=== PATIENT | female | born 1965 | race Caucasian/White ===

== ENCOUNTER → 2021-06-08 16:07 | Outpatient (BNVA) | payer OTHER, SELFPAY | PROVIDERS: PCP Nurse Practitioner Family; Visit Provider Orthopaedic Surgery | DX: Z01.812 Encounter for preprocedural laboratory examination (principal); Z20.822 Contact with and (suspected) exposure to COVID-19 | CPT/HCPCS: 87635 ==

== ENCOUNTER 2021-06-14 06:32 | Day surgery (SDC) | payer OTHER, SELFPAY ==
[2021-06-13 11:47] VITALS: BMI 32.6
[2021-06-14] VITALS (7 sets, daily range): BP systolic 102–121; BP diastolic 77–85; PULSE 70–97; RESP 10–18; TEMP 36.1–36.9; O2SAT 93–97
[2021-06-14] MEDS: sodium chloride 0.9% 1,000 ML 30 ML IV (06:50)
--- NOTE | 2021-06-14 07:19 | ANES.PREANE2 ---
Pre-Anesthetic Assessment Pre-Anesthetic Assessment: Height/Weight: Height 1.73 m Weight 97.522 kg Temp Pulse Resp BP Pulse Ox 98.4 F 93 18 102/77 96 06/14/21 06:54 06/14/21 06:54 06/14/21 06:54 06/14/21 06:54 06/14/21 06:54 Preop Diagnosis: Knee Medial meniscal tear, right Proposed Procedure: Operation Date: 06/14/21 08:05 Proposed Procedures p right Knee Arthroscopy with medial meniscectomy 52287 s83.241A(Right) - Shashi Blair MD Familial anesthetic complications: none Was Beta Robert taken within 24 hours: N/A Was Clonidine taken within 24 hours: N/A Last intake: Intake Last Liquid Date 06/13/21 Last Liquid Time 20:00 Last Solid Date 06/13/21 Last Solid Time 20:00 Social: Social History: No alcohol and No tobacco Exam: Pre-Anes Outpt Exam: alert, oriented x 3, clear to auscultation bilaterally and regular rate & rhythm Airway: Cervical ROM: WNL MP: 1 Dentition: Full Anesthetic Plan: ASA status: 1 Anesthesia: General Risk of > 500 ml blood loss (7ml/kg in children): No PFSH Anesthesia PFSH: Social History Smoking and tobacco status: former smoker Alcohol intake: current Alcohol intake frequency: holidays/special occasions only Data Anesthesia Cardiac Studies: No Data to Display
--- NOTE | 2021-06-14 07:51 | W.PM.OPSUD ---
Surgery/Procedure H&P Update DATE OF PROCEDURE: June 14, 2021 DATE H&P PERFORMED: 05/22/21 PREOP DIAGNOSIS: Knee Medial meniscal tear, right PLANNED PROCEDURE: Operation Date: 06/14/21 08:05 Proposed Procedures p right Knee Arthroscopy with medial meniscectomy 55632 s83.241A(Right) - Shashi Blair MD
[2021-06-14] MEDS: morphine 4 mg/mL SDV 1 mL 8 MG XX (08:38)
--- NOTE | 2021-06-14 09:06 | P.OP_ITS ---
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 She had full-thickness cartilage loss over approximately 1 x 2 cm area of the weightbearing aspect the medial femoral condyle. She had fibrillation fraying and thinning of the lateral tibial plateau Procedure Done: Arthroscopic right lateral meniscectomy, chondroplasty medial femoral condyle Pathology: none sent Anesthesia: General Estimated blood loss (mL): 10 Complications: None Findings: The patient had complex tearing involving the central 50% of the right lateral meniscus. She had generalized fibrillation and thinning of the lateral tibial plateau. She had approximately a 1 x 2 cm full-thickness area of cartilage loss over the weightbearing aspect of the medial femoral condyle Condition: stable Disposition: PACU Procedure: Marianne was taken to the operating room and given a general anesthesia. She was given 2 g of Ancef. She was prepped and draped in the supine position with the right leg exposed. The knee was infiltrated with 30 cc of 0.5% Marcaine with epi and 10 mg of morphine. A timeout was performed. The knee was entered through the standard inferior medial and inferior lateral portal. The diagnostic portion of the arthroscopy was performed. Initial attention was paid to the lateral compartment. Utilizing an incisor shaver unstable flaps and fissures from the central portion lateral meniscus were removed. The rim was then cleaned out with the [employer] Werewolf probe leaving approximately 50% of the lateral meniscus in the middle third behind. Thinning and fibrillation were identified over the lateral tibial plateau. There were no unstable flaps to benefit from debridement and this was not addressed. Next attention was focused over the medial femoral condyle. The area of full- thickness cartilage loss was identified. Utilizing the werewolf probe unstable peripheral flaps and fissures were debrided back to a stable rim. This left an approximately 1 x 2 cm area of full-thickness cartilage loss over the central weightbearing medial femoral condyle. The remaining cartilage looked reasonable. Margins were stable. Final attention was focused on the patellofemoral joint which revealed remarkably little chondromalacia. The knee was irrigated with saline. Portals were closed with 3-0 Prolene. Sterile dressings were applied. The patient was extubated and taken to the recovery room in stable condition.
[2021-06-14] MEDS: HYDROcodone-acetaminophen 5-325 mg Tablet 1 TAB PO (10:15)
--- NOTE | 2021-06-14 16:52 | ANE.PACU2 ---
Inpatient post-anesthesia follow up: Airway intact: Yes Vital signs: Temperature 97.7 F Pulse Rate 71 Respiratory Rate 18 Blood Pressure 110/79 Pulse Oximetry 93 Oxygen Delivery Me thod Room Air Oxygen Flow Rate 8 Fraction of Inspir ed Oxygen Hydration adequate: Yes Nausea and vomiting: No Pain level: 2 Mental status: Baseline
== END 2021-06-14 10:20 | disposition home or self-care (01) ==
PROVIDERS: PCP Nurse Practitioner Family; Visit Provider Orthopaedic Surgery
PROC: (CPT 29870; principal; 2021-06-14 07:55)
DX: S83.281A Other tear of lateral meniscus, current injury, right knee, initial encounter (principal); W22.8XXA Striking against or struck by other objects, initial encounter; Y99.0 Civilian activity done for income or pay; Z87.891 Personal history of nicotine dependence
CPT/HCPCS: 29881; J0690; J1100; J2270; J2405; J2704; J3010; J3490; J7030

== ENCOUNTER → 2021-10-10 08:07 | Outpatient (BNVA) | payer BC, SELFPAY | PROVIDERS: PCP Nurse Practitioner Family; Visit Provider Orthopaedic Surgery | DX: M25.562 Pain in left knee (principal); M25.462 Effusion, left knee | CPT/HCPCS: 73560; 73565 ==

== ENCOUNTER 2021-11-15 06:43 | Outpatient (CLI) | payer BC, SELFPAY ==
--- NOTE | 2021-11-15 07:15 | MR_ITS ---
WS: [id number] MRI LEFT KNEE HISTORY: M94.262 - Chondromalacia, left knee COMPARISON: Radiographs 10/10/2021 Anterior cruciate ligament: Mild thickening of the distal ACL but no tear. Posterior cruciate ligament: Intact. Medial collateral ligament: Medial collateral ligament is being displaced from the joint line by an e xtruded meniscus. There is fluid along the osseous aspect of the MCL. No MCL tear. Posterior lateral corner structures: Intact. Medial menisci: Horizontal tear in the posterior horn extends to the inferior articular surface and a lso towards the free edge. There is additional significant increased signal within the central portio n of the posterior meniscus. Meniscus is extruded from the joint line by 5 mm. Anterior horn is pattie l. Lateral meniscus: Intact. Normal signal, size and shape. Extensor mechanism: Distal quadriceps tendon and patellar tendons are intact. Fluid and soft tissue: Moderate amount of suprapatellar bursal fluid. There is also edema surrounding the knee greatest along the medial knee at the level of the tibial plateau. Small amount of fluid ex tending around the medial head of the gastrocnemius and the semimembranosus muscle. No focal collecti on. Osseous and articular structures: Patellofemoral compartment: Cartilage is intact. No marrow edema. Medial compartment: Moderate narrowing medial compartment with moderate chondromalacia. Thinning and fissuring of cartilage. Near bone upon bone. There is a additional marrow edema along the medial tibi al plateau. Lateral compartment: Mild narrowing of the lateral compartment with thinning and fissuring and loss o f cartilage. No marrow edema. MR/MR knee LT wo con* [id number] IMPRESSION: 1. Significant marrow edema in the medial tibial plateau with moderate loss of cartilage and joint space narrowing in the medial compartment. 2. Horizontal tear posterior horn medial meniscus with additional intrasubstan ce degeneration and extrusion from the joint line. 3. Increased fluid around the MCL with the MCL being displaced from the joint line by the extruded meniscus. 4. Suprapatellar joint effusion with additional edema associated with the semi membranosus muscle and the medial head of the gastrocnemius. 5. Chondromalacia lateral compartment joint space narrowing. No underlying mar row edema.
== END 2021-11-15 06:44 | disposition home or self-care (01) ==
LOC: RADSHAW 06:52
PROVIDERS: PCP Nurse Practitioner Family; Visit Provider Orthopaedic Surgery
DX: M94.262 Chondromalacia, left knee (principal); M25.462 Effusion, left knee; R60.0 Localized edema; S83.242A Other tear of medial meniscus, current injury, left knee, initial encounter; X58.XXXA Exposure to other specified factors, initial encounter
CPT/HCPCS: 73721

== ENCOUNTER → 2021-11-30 00:01 | Outpatient (BNVA) | payer BC, SELFPAY | PROVIDERS: PCP Nurse Practitioner Family; Visit Provider Orthopaedic Surgery | DX: Z01.812 Encounter for preprocedural laboratory examination (principal); Z20.822 Contact with and (suspected) exposure to COVID-19 | CPT/HCPCS: 87635 ==

== ENCOUNTER 2021-12-06 07:30 | Day surgery (SDC) | payer BC, SELFPAY ==
[2021-12-05 11:32] VITALS: BMI 31.9
[2021-12-06] VITALS (13 sets, daily range): BP systolic 105–148; BP diastolic 64–92; PULSE 56–70; RESP 16–18; TEMP 36.2–36.5; O2SAT 94–99
[2021-12-06] MEDS: sodium chloride 0.9% 1,000 ML 30 ML IV (08:02)
--- NOTE | 2021-12-06 09:07 | W.PM.OPSUD ---
Surgery/Procedure H&P Update DATE OF PROCEDURE: December 06, 2021 DATE H&P PERFORMED: 11/27/21 PREOP DIAGNOSIS: Knee Medial meniscal tear left PLANNED PROCEDURE: Operation Date: 12/06/21 08:55 Proposed Procedures p Knee Arthroscopy w/ Meiscectomy 43384 M23.307(Left) - Shashi Blair MD
--- NOTE | 2021-12-06 09:19 | ANES.PREANE2 ---
Pre-Anesthetic Assessment Pre-Anesthetic Assessment: Height/Weight: Height 1.73 m Weight 95.254 kg Temp Pulse Resp BP Pulse Ox 97.7 F 67 18 126/71 99 12/06/21 07:51 12/06/21 07:51 12/06/21 07:51 12/06/21 07:51 12/06/21 07:51 Preop Diagnosis: Knee Medial meniscal tear left Proposed Procedure: Operation Date: 12/06/21 08:55 Proposed Procedures p Knee Arthroscopy w/ Meiscectomy 95316 M23.307(Left) - Shashi Blair MD Familial anesthetic complications: None Was Beta Robert taken within 24 hours: N/A Was Clonidine taken within 24 hours: N/A Last intake: Intake Last Liquid Date 12/05/21 Last Liquid Time 19:00 Last Solid Date 12/05/21 Last Solid Time 19:00 Social: Social History: No alcohol Exam: Pre-Anes Outpt Exam: alert, oriented x 3, clear to auscultation bilaterally and regular rate & rhythm Airway: Submandibular: WNL Cervical ROM: WNL MP: 1 Dentition: Full History/ROS: No significant history except as noted and No significant complaints Pulmonary: Pulmonary: None reported CV/HEM: CV/HEM: None reported : : None reported Hepatic: Hepatic: None reported GI: GI: None reported Metabolic: Metabolic: None reported Musc/skel: Comments: Chrondomalacia Neuropsych: Neuropsych: None reported Anesthetic Plan: ASA status: 1 Anesthesia: Anesthesia Evaluation and General Risk of > 500 ml blood loss (7ml/kg in children): No Medications/Allergies Current Medications: Current Medications Generic Name Dose Route Start Last Admin Trade Name Fitzq PRN Reason Stop Dose Admin Sodium Chloride 1,000 mls @ 30 ml s/hr 12/06/21 07:45 12/06/21 08:02 Sodium Chloride 0.9% IV 12/07/21 07:44 30 mls/hr .Q24H LUCIANA Administration PFSH Anesthesia PFSH: Social History Smoking and tobacco status: former smoker Alcohol intake: current Alcohol intake frequency: holidays/special occasions only Data Anesthesia Cardiac Studies: No Data to Display
[2021-12-06] MEDS: morphine 4 mg/mL SDV 1 mL 8 MG XX (09:58)
--- NOTE | 2021-12-06 12:27 | XR_ITS ---
WS: [id number] XR knee LT 1-2V [id number] REASON FOR EXAM: left knee xray for counts FINDINGS: Small radiopaque perforated plate overlying the mid proximal tibial metaphysis. No other radiopacities. No bony abnormality. XR/XR knee LT 1-2V 22113 IMPRESSION: Small radiopacity overlying the proximal as above. This has the appearance of a n anchor for ligament repair however correlation with surgical procedure is nee ded.
--- NOTE | 2021-12-06 13:04 | P.OP_ITS ---
Operative Report Date of procedure: December 06, 2021 Pre-op Diagnosis: Knee Medial meniscal tear left, chondromalacia left knee Post-op diagnosis: other Post-op Diagnosis: Left medial meniscal root avulsion, subacute; chondromalacia medial femoral condyle Post-op Findings: The patient had a root avulsion of the left medial meniscus. She had generalized fraying and cartilage thinning over the medial femoral condyle but no exposed subchondral bone Procedure Done: Arthroscopic repair left medial meniscal root Chondroplasty left medial femoral condyle Implants: [employer]hew Ultratape many x2 and Endobutton Pathology: none sent Surgeon: Shashi Blair Anesthesia: General Estimated blood loss (mL): 10 Tourniquet time (min): 83 Complications: None Findings: The patient had an avulsion of the meniscal root. No meniscal tissue was identified at the attachment. She had generalized fraying and thinning over the medial femoral condyle but no exposed subchondral bone Condition: stable Disposition: PACU Brief History: Marianne had a 2 to 3-month history of swelling and pain in the left knee in the absence of trauma. An MRI revealed extrusion of the medial meniscus although a root tear was not clearly visible and mild chondromalacia of the medial femoral condyle with significant tibial edema. Arthroscopic surgery was the chosen to better evaluate the status of the meniscus and proceed with meniscal root repair if possible. Procedure: Marianne was taken to the operating room and given 2 g of Ancef. She was given a general anesthesia and her knee was infiltrated with 30 cc of 0.5% Marcaine with epi and 10 mg of morphine. A timeout was performed. The knee was initially entered through the anterior medial and anterior lateral portal and the diagnostic portion arthroscopy was performed. Essentially no significant chondromalacia was identified in the patella trochlea or lateral compartment. She had a generalized fibrillation and fraying over the entirety of the medial femoral condyle but no exposed subchondral bone was identified. Utilizing an incisor shaver and [employer] Werewolf probe unstable meniscus was debrided back to a stable base of the tissue. Attention was then focused on the meniscal root. A more anterior medial portal was made. Through that portal the posterior root could be grasped and the quality of the posterior meniscal root assessed. It was found to be marginally mobile. The [employer] Werewolf probe was then used to release some of the inferior capsular tissue beneath the meniscus allowing greater mobility. A left S[employer]hew FirstPass mini suture passer was used to shuttle 2 tapes through the meniscal root. The root repair guide was then placed at the pre sumed attachment. A 2 cm long incision was made over the medial tibia and the guide secured on the tibia. A tunnel was drilled exiting at the attachment site. The shuttle suture was used to shuttle all 4 stitches through the tunnel and secured but it was still difficult to completely mobilized the meniscus to the attachment and it seemed to threaten the integrity of the sutures. The medial suture was then removed and using the first pass mini a tape passed in a luggage tag type of fashion with better purchase. A tunnel was then made in a slightly more medialized position to allow easier mobilization of the meniscus to the tibia. All 4 sutures were passed through the tunnel. They were secured over a Endobutton with images revealing the meniscus positioned beneath the medial condyle correctly and and the root firmly attached to the tunnel. The knee was irrigated with saline. The medial incision was closed with deep 2- 0 Vicryl and superficial 3-0 Prolene. Portals were closed with 3-0 Prolene. Sterile dressings were applied. The patient was placed in a hinged brace locked in full extension.
[2021-12-06] MEDS: fentaNYL 50 mcg/mL INJ 2mL IVP (13:18)
[2021-12-06] MEDS: ondansetron 2 mg/ML SDV 2 mL 4 MG IVP (14:10)
[2021-12-06] MEDS: HYDROmorphone 1 mg/mL INJ 1 mL 0.5 MG IVP (14:21)
--- NOTE | 2021-12-06 14:30 | ANE.PACU2 ---
Inpatient post-anesthesia follow up: Airway intact: Yes Vital signs: Temperature 97.4 F Pulse Rate 59 Respiratory Rate 18 Blood Pressure 137/92 Pulse Oximetry 96 Oxygen Delivery Me thod Room Air Oxygen Flow Rate 2 Fraction of Inspir ed Oxygen Hydration adequate: Yes Nausea and vomiting: No Pain level: 1 Mental status: Baseline
--- NOTE | 2021-12-06 15:44 | SUR.PHASEII ---
patient left with walker that was delivered from HOME. pt stated she has a wheelchair at home if she needs it, also crutches. PT saw patient in room in ops and educated her.
== END 2021-12-06 15:42 | disposition home or self-care (01) ==
PROVIDERS: PCP Nurse Practitioner Family; Visit Provider Orthopaedic Surgery
PROC: (CPT 29870; principal; 2021-12-06 08:45)
DX: S83.242A Other tear of medial meniscus, current injury, left knee, initial encounter (principal); X58.XXXA Exposure to other specified factors, initial encounter; M94.262 Chondromalacia, left knee; Z87.891 Personal history of nicotine dependence
CPT/HCPCS: 29882; 73560; 96374; 96375; 97760; J0690; J1170; J2250; J2270; J2405; J2704; J3010; J3490; J7030; L1812

== ENCOUNTER → 2023-01-22 09:21 | Outpatient (BNVA) | payer BC, SELFPAY | PROVIDERS: PCP Nurse Practitioner Family; Visit Provider Orthopaedic Surgery | DX: M17.12 Unilateral primary osteoarthritis, left knee (principal) | CPT/HCPCS: 73560; 73565 ==

== ENCOUNTER → 2023-09-19 08:50 | Outpatient (BNVA) | payer BC, SELFPAY | PROVIDERS: PCP Family Medicine; Visit Provider Family Medicine | DX: Z00.00 Encounter for general adult medical examination without abnormal findings (principal); E03.9 Hypothyroidism, unspecified; Z13.6 Encounter for screening for cardiovascular disorders; Z83.2 Family history of diseases of the blood and blood-forming organs and certain disorders involving the immune mechanism | CPT/HCPCS: 80053; 80061; 81241; 84443 ==

== ENCOUNTER → 2024-09-09 11:07 | Outpatient (BNVA) | payer BC, SELFPAY | PROVIDERS: PCP Family Medicine; Visit Provider Family Medicine | DX: Z00.00 Encounter for general adult medical examination without abnormal findings (principal) | CPT/HCPCS: 80053; 80061 ==

== ENCOUNTER → 2025-09-08 11:55 | Outpatient (BNVA) | payer OTHER, SELFPAY | PROVIDERS: PCP Family Medicine; Visit Provider Family Medicine | DX: Z00.00 Encounter for general adult medical examination without abnormal findings (principal); E03.9 Hypothyroidism, unspecified | CPT/HCPCS: 80053; 80061; 84443 ==

== ENCOUNTER → 2025-11-02 10:40 | Outpatient (BNVA) | payer OTHER, SELFPAY | PROVIDERS: PCP Family Medicine; Visit Provider Family Medicine | DX: N39.0 Urinary tract infection, site not specified (principal) | CPT/HCPCS: 81000; 87086 ==